=== PATIENT | female | born 2000 | race American Indian/Alaskan Native ===

== ENCOUNTER 2018-07-21 13:57 | Emergency (ER) | payer MEDICAID ==
[2018-07-21 14:46] VITALS: O2SAT 100
[2018-07-21 16:15] LABS: HCG,QUALITATIVE URINE NEGATIVE (NEGATIVE)
[2018-07-21 16:16] LABS: SQUAMOUS EPITHIAL 1 /hpf (0-5); URINE BILIRUBIN NEGATIVE (NEGATIVE); URINE BLOOD NEGATIVE (NEGATIVE); URINE CLARITY Clear (Clear); URINE COLOR Yellow (YELLOW); URINE GLUCOSE (UA) NORMAL (Normal); URINE LEUKOCYTE ESTERASE TRACE Leu/uL (Negative); URINE PROTEIN NEGATIVE (NEGATIVE); URINE UROBILINOGEN NORMAL mg/dL (0.2-1.0)
--- NOTE | 2018-07-21 16:37 | C.PDOC ---
History Of Present Illness 18 yo female come in for evaluation of Right sided body pain intermittent for past few weeks. Pt reports, was seen at [facility] [place] 1 week ago when was diagnosed with " Kidney infection and gave me a pill, I lost my rx". Pt admits, had US and UA done at [facility] [place] with " normal results'. Pt reports, pain is localized over Right body side/RUQ pain, worse with movement. Otherwise, pt denies fever, chills, recent illness, abd. pain, N/V/D, UTI sx, hematuria, vaginal irritation or discharge, back pain. Ambulate to Ed for evaluation, not in any apparent distress. Time Seen by Provider: 07/21/18 15:25 Chief Complaint (Nursing): Abdominal Pain History Per: Patient History/Exam Limitations: no limitations Onset/Duration Of Symptoms: Days Current Symptoms Are (Timing): Still Present Location Of Pain/Discomfort: RUQ Past Medical History Reviewed: Historical Data, Nursing Documentation, Vital Signs Vital Signs: Last Vital Signs Temp 98.1 F 07/21/18 14:43 Pulse 80 07/21/18 14:43 Resp 18 07/21/18 14:43 BP 109/72 07/21/18 14:43 Pulse Ox 100 07/21/18 14:43 - Medical History PMH: No Chronic Diseases Surgical History: No Surg Hx Family History: States: No Known Family Hx - Social History Hx Tobacco Use: No Hx Alcohol Use: No Hx Substance Use: No - Immunization History Hx Tetanus Toxoid Vaccination: No Hx Influenza Vaccination: No Hx Pneumococcal Vaccination: No Review Of Systems Constitutional: Positive for: Other (Right-sided body pain/RUQ pain). Negative for: Fever, Chills Gastrointestinal: Negative for: Nausea, Vomiting, Abdominal Pain, Diarrhea Genitourinary: Negative for: Dysuria, Frequency, Incontinence, Hematuria, Vaginal Discharge (or irritation) Musculoskeletal: Negative for: Back Pain Physical Exam - Physical Exam Appears: Well, Non-toxic, No Acute Distress Skin: Normal Color, Warm, Dry, No Rash Head: Normacephalic Eye(s): bilateral: PERRL Ear(s): Bilateral: Normal Nose: No Flaring, No Discharge Oral Mucosa: Moist Throat: No Erythema, No Drooling Neck: Trachea Midline, Supple Cardiovascular: Rhythm Regular, No Murmur, No JVD Respiratory: No Decreased Breath Sounds, No Accessory Muscle Use, No Stridor, No Wheezing Gastrointestinal/Abdominal: Soft, Tenderness (Right UQ, mild extrend down along body side), No Distention, No Guarding, No Rebound Back: No CVA Tenderness Extremity: Normal ROM, No Deformity, No Swelling Neurological/Psych: Oriented x3, Normal Speech ED Course And Treatment - Laboratory Results Urine POC: Negative O2 Sat by Pulse Oximetry: 100 (RA) Pulse Ox Interpretation: Normal - CT Scan/US Renal US, left Other Rad Studies (CT/US): Read By Radiologist CT/US Interpretation: (-) acute findings, no kidney stone Progress Note: On re-eval, pt is afebrile, hemodynamicaly stable. Non-toxic. Tolerate Po well in ED. ENT: No acute findings. neck: SUpple. Lungs: CTA B/L, BS equal B/L. ABd: benign, (-) guaridng, (-) rebound, (-) RLQ tenderness. Back: (-) CVA tenderness. Neurologicaly intact. UA- normal study. Preg (-). Renal US, Left (-) evidence of kidney stones. Pt has clinical findings c/w Right sided body pain r/o muscle strain. Pt advised. rfef. to F/u with PMD in 2-3 days for re-eval. return if any new changes. Disposition Counseled Patient/Family Regarding: Studies Performed, Diagnosis, Need For Followup, Rx Given - Disposition Referrals: [facility] [Outside] Disposition: HOME/ ROUTINE Disposition Time: 18:02 Condition: STABLE Additional Instructions: Take medication as prescribed Follow up with PMD in 2-3 days for re-evaluation. return to ED if any worsening or new changes. 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 - Scribe Statement The provider has reviewed the documentation as recorded by the Scribe (Mis Mahan) All medical record entries made by the Scribe were at my direction and personally dictated by me. I have reviewed the chart and agree that the record accurately reflects my personal performance of the history, physical exam, medical decision making, and the department course for this patient. I have also personally directed, reviewed, and agree with the discharge instructions and disposition.
[2018-07-21 17:10] VITALS: BP 109/63; PULSE 76; RESP 16; TEMP 98.4
--- NOTE | 2018-07-21 18:16 | US ---
Date of service: 07/21/2018 PROCEDURE: Ultrasound of the Kidneys HISTORY: Right flank pain COMPARISON: None available. TECHNIQUE: Sonogram of the kidneys. FINDINGS: RIGHT KIDNEY: Measures: 10.0 x 4.3 x 5.0 cm. No obstructing calculus, hydronephrosis, or renal cyst identified. LEFT KIDNEY: Measures: 10.9 x 4.7 x 4.8 cm. No obstructing calculus or hydronephrosis identified. 0.9 x 0.9 x 0.9 cm upper pole and 1.0 x 1.0 x 1.0 cm midpole renal cyst. OTHER FINDINGS: None. IMPRESSION: Left renal cysts as above.
== END 2018-07-21 18:30 | disposition home or self-care (01) ==
LOC: C.ER 13:57
DX: S39.011A Strain of muscle, fascia and tendon of abdomen, initial encounter (principal); X58.XXXA Exposure to other specified factors, initial encounter